=== PATIENT | female | born 1975 | race American Indian/Alaskan Native ===

== ENCOUNTER 2019-05-09 19:12 | Emergency (ER) | payer BC ==
--- NOTE | 2019-05-09 19:56 | Emergency Department Report ---
Blank Doc - Documentation Documentation: This is a 44-year-old female that presents with rectal pain x1 month and blood in stool. Denies any n/v. This initial assessment/diagnostic orders/clinical plan/treatment(s) is/are subject to change based on patient's health status, clinical progression and re- assessment by fellow clinical providers in the ED. Further treatment and workup at subsequent clinical providers discretion. Patient/guardians urged not to elope from the ED as their condition may be serious if not clinically assessed and managed. Initial orders include: 1- Patient sent to main ed for further evaluation and treatment 2- labs 3- UA
--- NOTE | 2019-05-09 20:38 | Emergency Department Report ---
ED GI Bleed HPI - General Chief complaint: GI Bleed Stated complaint: RECTAL BLEEDING Time Seen by Provider: 05/09/19 19:55 Source: patient Mode of arrival: Ambulatory Limitations: No Limitations - History of Present Illness Initial comments: 44 yo F presents to ED with rectal bleeding since this morning. Patient had reported rectal pain for approximately 2 months, due to a possible hemorrhoid. Patient states she has had a swollen area in her rectum for couple of months now that is painful if she sits for long periods of time. Patient states she tried [id number] hemorrhoid treatment for about 2 weeks, without relief. This morning, patient states she had a bowel movement and noticed bright red blood mixed in with stool. This evening she noticed blood when she was so she decided to come to the emergency room. Patient denies any rectal pain at this time. Denies any dizziness, abdominal pain, chest pain, shortness of breath. MD complaint: gross hematochezia -: This morning Quality: painless Consistency: intermittent Improves with: none Worsens with: bowel movement Associated Symptoms: denies: abdominal pain, nausea, vomiting, shortness of breath, syncope, weakness - Related Data Home Medications Medication Instructions Recorded Confirmed Last Taken No Known Home Medications [No 03/08/14 03/08/14 Unknown Reported Home Medications] Allergies Allergy/AdvReac Type Severity Reaction Status Date / Time No Known Allergies Allergy Unverified 03/08/14 15:27 ED Review of Systems ROS: Stated complaint: RECTAL BLEEDING Other details as noted in HPI Comment: All other systems reviewed and negative Respiratory: denies: shortness of breath Cardiovascular: denies: chest pain Gastrointestinal: hematochezia. denies: abdominal pain, nausea, vomiting, diarrhea, constipation Neurological: other (denies dizziness) ED Past Medical Hx - Past Medical History Previous Medical History?: No - Surgical History Past Surgical History?: Yes Additional Surgical History: R finger amputation. Tubal ligation - Social History Smoking Status: Current Every Day Smoker Substance Use Type: None - Medications Home Medications: Home Medications Medication Instructions Recorded Confirmed Last Taken Type No Known Home Medications [No 03/08/14 03/08/14 Unknown History Reported Home Medications] ED Physical Exam - General Limitations: No Limitations General appearance: alert, in no apparent distress - Head Head exam: Present: atraumatic, normocephalic - Eye Eye exam: Present: normal appearance, PERRL, EOMI - ENT ENT exam: Present: mucous membranes moist - Neck Neck exam: Present: normal inspection - Respiratory Respiratory exam: Present: normal lung sounds bilaterally. Absent: respiratory distress - Cardiovascular Cardiovascular Exam: Present: regular rate, normal rhythm - GI/Abdominal GI/Abdominal exam: Present: soft. Absent: distended, tenderness - Rectal Rectal exam: Present: normal inspection, heme (-) stool. Absent: bloody stool, hemorrhoids, tenderness - Extremities Exam Extremities exam: Present: full ROM - Neurological Exam Neurological exam: Present: alert, oriented X3 - Psychiatric Psychiatric exam: Present: normal affect, normal mood - Skin Skin exam: Present: warm, dry, intact, normal color ED Course Vital Signs 05/09/19 05/09/19 05/09/19 19:21 19:54 22:40 Temperature 99.0 F 99 F 98.9 F Pulse Rate 91 H 91 H 84 Respiratory 20 18 16 Rate Blood Pressure 154/91 134/91 Blood Pressure 142/76 [Right] O2 Sat by Pulse 98 97 99 Oximetry 05/10/19 00:05 Temperature 99.3 F Pulse Rate 90 Respiratory 17 Rate Blood Pressure Blood Pressure 154/79 [Right] O2 Sat by Pulse 99 Oximetry ED Medical Decision Making - Lab Data Result diagrams: 05/09/19 20:55 05/09/19 22:54 - Medical Decision Making 44 yo F presents for rectal bleeding. Vitals normal, pt is not anemic. No bleeding external hemorrhoids on exam. Internal hemhorrhoids possible as pt reported sometimes having rectal discomfort when sitting for long periods of time. Guiac negative. Pt advised to f/u with GI. Return precautions given - Differential Diagnosis anemia, hemorrhoids Critical care attestation.: If time is entered above; I have spent that time in minutes in the direct care of this critically ill patient, excluding procedure time. ED Disposition Clinical Impression: Rectal bleeding Disposition: DC-01 TO HOME OR SELFCARE Is pt being admited?: No Condition: Stable Instructions: Rectal Bleeding (ED) Referrals: JEN VASQUEZ MD [Primary Care Provider] - 3-5 Days [facility] [Provider Group] - 3-5 Days Forms: Accompanied Note Time of Disposition: 23:26
[2019-05-09 21:12] LABS: Basophils # (Auto) 0.1 K/mm3 (0.0-0.1); Eosinophils # (Auto) 0.4 K/mm3 (0.0-0.4); Eosinophils % (Auto) 3.6 % (0.0-4.3); Hematocrit 39.8 % (30.3-42.9); Hemoglobin 13.3 gm/dl (10.1-14.3); Lymphocytes % (Auto) 37.4 % (13.4-35.0); Mean Corpuscular HGB Conc 34 % (30-34); Mean Corpuscular Volume 89 fl (79-97); Monocytes # (Auto) 1.1 K/mm3 (0.0-0.8); Monocytes % (Auto) 10.3 % (0.0-7.3); Platelet Count 305 K/mm3 (140-440); Red Blood Count 4.46 M/mm3 (3.65-5.03); Red Cell Distribution Width 14.8 % (13.2-15.2)
[2019-05-09 22:09] LABS: Alanine Aminotransferase TNR units/L (7-56)
[2019-05-09 22:11] LABS: BUN/Creatinine Ratio TNR; Blood Urea Nitrogen TNR mg/dL (7-17)
[2019-05-09 22:12] LABS: Albumin TNR g/dL (3.9-5); Calcium TNR mg/dL (8.4-10.2)
[2019-05-09 22:13] LABS: Hemolysis Index TNR
[2019-05-09 23:22] LABS: Alanine Aminotransferase 12 units/L (7-56); BUN/Creatinine Ratio 12; Blood Urea Nitrogen 12 mg/dL (7-17); Calcium 9.2 mg/dL (8.4-10.2); Hemolysis Index 57
[2019-05-10 01:36] VITALS: BP 154/79
== END 2019-05-10 00:05 | disposition home or self-care (01) ==
LOC: ED 19:12
DX: K62.5 Hemorrhage of anus and rectum (principal); K92.1 Melena; F17.200 Nicotine dependence, unspecified, uncomplicated; Z98.51 Tubal ligation status
CPT/HCPCS: 36415; 80053; 84703; 85025